=== PATIENT | male | born 1990 | race Caucasian/White ===

== ENCOUNTER 2017-10-10 14:09 | Emergency (ER) | payer SELFPAY ==
[2017-10-10] MEDS ORDERED: TETANUS & DIPHTHERIA TOX,ADULT 0.5 ML VIAL ONE (14:53)
[2017-10-10] MEDS ORDERED: DOXYCYCLINE 100 MG CAP PO ONE (14:53)
[2017-10-10] MEDS ORDERED: LIDOCAINE 1% 20 ML MDV ONE (15:28)
--- NOTE | 2017-10-10 15:29 | EDPHYS ---
Physician Documentation [facility] Name: Otto Choa Age: 27 yrs Sex: Male : 1990 Arrival Date: 10/10/2017 Time: 14:10 Bed 20 Private MD: ED Physician Stefano Hart HPI: 10/10 14:19 This 27 yrs old Male presents to ER via Wheelchair with complaints of kb Laceration To Foot. 14:19 The patient has a laceration related to: got out of boat and stepped in oyster bed kb occurred outdoors, and there are no complicating factors. The injury was accidental. The laceration(s) is(are) located on the medial aspect of right heel and medial aspect of left toes. Onset: The symptoms/episode began/occurred just prior to arrival. Associated signs and symptoms: The patient has no apparent associated signs or symptoms. The patient has not experienced similar symptoms in the past. The patient has not recently seen a physician. 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 - Social history:: Smoking status: Patient/guardian denies using tobacco. ROS: 14:20 Constitutional: Negative for fever, chills, and weight loss, Cardiovascular: Negative kb for chest pain, palpitations, and edema, Respiratory: Negative for shortness of breath, cough, wheezing, and pleuritic chest pain, Abdomen/GI: Negative for abdominal pain, nausea, vomiting, diarrhea, and constipation, MS/Extremity: Negative for injury and deformity, Neuro: Negative for headache, weakness, numbness, tingling, and seizure. 14:20 Skin: Positive for laceration(s), of the medial aspect of right heel and medial aspect of left toes. Exam: 14:25 Constitutional: This is a well developed, well nourished patient who is awake, alert, kb and in no acute distress. Head/Face: Normocephalic, atraumatic. Chest/axilla: Normal chest wall appearance and motion. Nontender with no deformity. No lesions are appreciated. Cardiovascular: Regular rate and rhythm with a normal S1 and S2. No gallops, murmurs, or rubs. Normal PMI, no JVD. No pulse deficits. Respiratory: Lungs have equal breath sounds bilaterally, clear to auscultation and percussion. No rales, rhonchi or wheezes noted. No increased work of breathing, no retractions or nasal flaring. Abdomen/GI: Soft, non-tender, with normal bowel sounds. No distension or tympany. No guarding or rebound. No evidence of tenderness throughout. MS/ Extremity: Pulses equal, no cyanosis. Neurovascular intact. Full, normal range of motion. Neuro: Awake and alert, GCS 15, oriented to person, place, time, and situation. Cranial nerves II-XII grossly intact. Motor strength 5/5 in all extremities. Sensory grossly intact. Cerebellar exam normal. Normal gait. 14:25 Skin: injury, laceration(s), the wound is approximately 4 cm(s), of the medial aspect of left toes, the second wound is approximately 1.5 cm(s), of the medial aspect of right heel, that can be described as clean, no foreign body, linear, without bleeding. Vital Signs: 14:16 BP 142 / 83; Pulse 80; Resp 19; Temp 98(TE); Pulse Ox 99% on R/A; Weight 79.38 kg; la1 Height 5 ft. 9 in. (175.26 cm); 15:00 BP 120 / 76; Pulse 66; Resp 18; Pulse Ox 99% on R/A; Pain 10/10; mh5 15:47 BP 136 / 92; Pulse 73; Resp 18; Pulse Ox 99% on R/A; Pain 9/10; mh5 14:16 Body Mass Index 25.84 (79.38 kg, 175.26 cm) la1 Laceration: 15:29 Wound Repair of 4cm ( 1.6in ) subcutaneous laceration to medial aspect of left toes. kb Irregularly shaped.. Distal neuro/vascular/tendon intact. Anesthesia: Wound infiltrated with 3 mls of 1% lidocaine. Wound prep: Extensive cleansing with betadine by me, Wound irrigation with saline by me. Skin closed with 4 4-0 Prolene using interrupted sutures and sterile technique. Dressed with Neosporin. Patient tolerated well. MDM: 14:18 Patient medically screened. kb 14:24 Data reviewed: vital signs, nurses notes. Data interpreted: Pulse oximetry: on room air kb is 99 %. Interpretation: normal. 15:28 Counseling: I had a detailed discussion with the patient and/or guardian regarding: the kb historical points, exam findings, and any diagnostic results supporting the discharge/admit diagnosis, the need for outpatient follow up, a family practitioner, to return to the emergency department if symptoms worsen or persist or if there are any questions or concerns that arise at home. 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 Exp: em 02/06/2020. Lot #: [id number]. } Route: IM; Site: right deltoid; 15:12 Follow up: Response: No adverse reaction em 14:48 Drug: Doxycycline 100 mg Route: PO; em 15:12 Follow up: Response: No adverse reaction em 15:20 Drug: Lidocaine (1 %) 1 vials {Note: administered by JOSIE Yepez.} Volume: 5 ml; Route: em Infiltration; 15:42 Follow up: Response: No adverse reaction em Disposition: 15:47 Co-signature as Attending Physician, Stefano Hart MD I agree with the assessment and jacklyn plan of care. Disposition: 10/10/17 15:29 Discharged to Home. Impression: Laceration without foreign body of foot. - Condition is Stable. - Discharge Instructions: Laceration Care, Adult, [id number]. - Prescriptions for Doxycycline Hyclate 100 mg Oral Tablet - take 1 tablet by ORAL route every 12 hours; 20 tablet. - Medication Reconciliation Form, Thank You Letter, Antibiotic Education, Prescription Opioid Use form. - Follow up: Emergency Department; When: As needed; Reason: Worsening of condition. Follow up: Private Physician; When: 2 - 3 days; Reason: Recheck today's complaints, Continuance of care, Re-evaluation by your physician. Signatures: Marleni Cavazos, [employer]-C HARLEY-Stefano Barajas MD MD cha Munoz, Edgar, ARTISTS' BOOKING REPRESENTATIVE ARTISTS' BOOKING REPRESENTATIVE Jeremie Ordonez, RN RN la1
--- NOTE | 2017-10-10 15:29 | ER ---
Nurse's Notes [facility] Name: Otto Chao Age: 27 yrs Sex: Male : 1990 Arrival Date: 10/10/2017 Time: 14:10 Bed 20 Private MD: Diagnosis: Laceration without foreign body of foot Presentation: 10/10 14:15 Presenting complaint: Patient states: lacerations to YEN from oysters. bleeding la1 controlled. Transition of care: patient was not received from another setting of care. Complicating Factors: There are no complicating factors for this patient. Onset of symptoms was October 10, 2017. Care prior to arrival: None. 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 - Social history:: Smoking status: Patient/guardian denies using tobacco. Screenin:53 Abuse screen: Denies threats or abuse. Nutritional screening: No deficits noted. em Tuberculosis screening: No symptoms or risk factors identified. Fall Risk None identified. Assessment: 14:33 General: Appears in no apparent distress. comfortable, Behavior is calm, cooperative. em Pain: Complains of pain in left foot. Neuro: Level of Consciousness is awake, alert, obeys commands, Oriented to person, place, time, situation. Cardiovascular: Capillary refill < 3 seconds Patient's skin is warm and dry. Respiratory: Airway is patent Respiratory effort is even, unlabored, Respiratory pattern is regular, symmetrical. GI: Abdomen is flat. : No signs and/or symptoms were reported regarding the genitourinary system. EENT: No signs and/or symptoms were reported regarding the EENT system. Derm: Skin is intact, Skin is pink, warm \T\ dry. Musculoskeletal: Range of motion: intact in all extremities. Injury Description: Laceration sustained to medial aspect of right heel and left foot is 2.6 to 7.5 cm long, was sustained 30-60 minutes ago. is bleeding a small amount. 15:26 Reassessment: No changes from previously documented assessment. I agree with the above la1 assessment from Cameron Hirsch. 15:30 Reassessment: Patient appears in no apparent distress at this time. Patient and/or em family updated on plan of care and expected duration. Pain level reassessed. Patient is alert, oriented x 3, equal unlabored respirations, skin warm/dry/pink. Vital Signs: 14:16 BP 142 / 83; Pulse 80; Resp 19; Temp 98(TE); Pulse Ox 99% on R/A; Weight 79.38 kg; la1 Height 5 ft. 9 in. (175.26 cm); 15:00 BP 120 / 76; Pulse 66; Resp 18; Pulse Ox 99% on R/A; Pain 10/10; mh5 15:47 BP 136 / 92; Pulse 73; Resp 18; Pulse Ox 99% on R/A; Pain 9/10; mh5 14:16 Body Mass Index 25.84 (79.38 kg, 175.26 cm) la1 ED Course: 14:10 Patient arrived in ED. as 14:16 Triage completed. la1 14:17 Arm band placed on left wrist. la1 14:18 Marleni Cavazos FNP-C is PHCP. kb 14:18 Stefano Hart MD is Attending Physician. kb 14:30 Cameron Hirsch LVN is Primary Nurse. em 14:40 Wound care: to laceration located on medial aspect of right heel and medial aspect of em left toes was cleaned with Betadine, soaked in Betadine solution. 14:40 Patient did not have IV access during this emergency room visit. em 14:53 Patient has correct armband on for positive identification. Bed in low position. Call em light in reach. Side rails up X 1. Adult w/ patient. 14:53 No provider procedures requiring assistance completed. 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 Exp: em 02/06/2020. Lot #: [id number]. } Route: IM; Site: right deltoid; 15:12 Follow up: Response: No adverse reaction em 14:48 Drug: Doxycycline 100 mg Route: PO; em 15:12 Follow up: Response: No adverse reaction em 15:20 Drug: Lidocaine (1 %) 1 vials {Note: administered by NP. Marleni} Volume: 5 ml; Route: em Infiltration; 15:42 Follow up: Response: No adverse reaction em Outcome: 15:29 Discharge ordered by MD. dow 15:42 Discharged to home ambulatory. em 15:42 Condition: good 15:42 Discharge instructions given to patient, Instructed on discharge instructions, follow up and referral plans. medication usage, Demonstrated understanding of instructions, follow-up care, medications, Prescriptions given X 1. 15:43 Patient left the ED. em Signatures: Marleni Cavazos, LACE CUTTER-C LACE CUTTER-Cameron Carrion, INDUSTRIAL HYGIENE TECHNICIAN INDUSTRIAL HYGIENE TECHNICIAN Sobeida Balderrama Lee, RN RN [email or web address] Padmini Owens [facility]
[2017-10-10 15:47] VITALS: BP 142/83; TEMP 98; O2SAT 99
== END 2017-10-10 15:43 | disposition home or self-care (01) ==
LOC: ER 14:09
PROC: 0JQR0ZZ Repair Left Foot Subcutaneous Tissue and Fascia, Open Approach (ICD-10-PCS; principal; 2017-10-10)
DX: S91.312A Laceration without foreign body, left foot, initial encounter (principal); Y28.8XXA Contact with other sharp object, undetermined intent, initial encounter; Y93.89 Activity, other specified; Y92.89 Other specified places as the place of occurrence of the external cause; Z23 Encounter for immunization; Z88.0 Allergy status to penicillin; Z88.6 Allergy status to analgesic agent
CPT/HCPCS: 90714; 99283

== ENCOUNTER 2017-10-13 20:36 | Emergency (ER) | payer SELFPAY ==
[2017-10-13] MEDS ORDERED: ONDANSETRON 4 MG (ODT) TAB ONE (21:19)
--- NOTE | 2017-10-13 22:07 | EDPHYS ---
Physician Documentation [facility] Name: Otto Chao Age: 27 yrs Sex: Male : 1990 Arrival Date: 10/13/2017 Time: 20:37 Bed 6 Private MD: ED Physician Lincoln Chan HPI: 10/14 00:26 This 27 yrs old Male presents to ER via Ambulatory with complaints of Doesn't tw4 Feel Right. 00:26 The patient presents to the emergency department with nausea, vomiting. Onset: The tw4 symptoms/episode began/occurred today. Possible causes: antibiotics, Doxycycline. The symptoms are aggravated by nothing. The symptoms are alleviated by nothing. Associated signs and symptoms: The patient has no apparent associated signs or symptoms. Severity of symptoms: At their worst the symptoms were moderate in the emergency department the symptoms are unchanged. Historical: - Allergies: 10/13 20:49 Ibuprofen; aj 20:49 PENICILLINS; aj - Home Meds: 20:49 None [Active]; aj - PMHx: 20:49 WPW; aj - PSHx: 20:49 ablasion; aj - Immunization history:: Adult Immunizations up to date. - Social history:: Smoking status: Patient uses tobacco products, smokes one pack cigarettes per day. ROS: 10/14 00:26 Constitutional: Negative for fever, chills, and weight loss, Eyes: Negative for injury, tw4 pain, redness, and discharge, Cardiovascular: Negative for chest pain, palpitations, and edema, Respiratory: Negative for shortness of breath, cough, wheezing, and pleuritic chest pain. MS/Extremity: Negative for injury and deformity, Skin: Negative for injury, rash, and discoloration, Neuro: Negative for headache, weakness, numbness, tingling, and seizure. Abdomen/GI: Positive for nausea, Negative for abdominal pain, nausea and vomiting, nausea, vomiting, and diarrhea, constipation, abdominal cramps, abdominal distension, anorexia, dysphagia, hematemesis, black/tarry stool, rectal pain. Exam: 00:26 Constitutional: This is a well developed, well nourished patient who is awake, alert, tw4 and in no acute distress. Head/Face: Normocephalic, atraumatic. Chest/axilla: Normal chest wall appearance and motion. Nontender with no deformity. No lesions are appreciated. Cardiovascular: Regular rate and rhythm with a normal S1 and S2. No gallops, murmurs, or rubs. Normal PMI, no JVD. No pulse deficits. Respiratory: Lungs have equal breath sounds bilaterally, clear to auscultation and percussion. No rales, rhonchi or wheezes noted. No increased work of breathing, no retractions or nasal flaring. Abdomen/GI: Soft, non-tender, with normal bowel sounds. No distension or tympany. No guarding or rebound. No evidence of tenderness throughout. 00:26 Musculoskeletal/extremity: Extremities: noted in the ball of left foot: laceration, swelling, tenderness. 00:32 Musculoskeletal/extremity: Extremities: tw4 Vital Signs: 10/13 20:49 BP 143 / 84; Pulse 91; Resp 18; Temp 99.3; Pulse Ox 99% on R/A; Weight 79.38 kg; Height aj 5 ft. 9 in. (175.26 cm); Pain 0/10; 21:05 BP 142 / 94; Pulse 102; Resp 18; Pulse Ox 99% ; cc 21:17 BP 132 / 78; Pulse 88; Resp 18; Pulse Ox 100% on R/A; ea 22:20 BP 115 / 73; Pulse 61; Resp 16; Temp 98.9; Pulse Ox 99% on R/A; Pain 0/10; ak1 20:49 Body Mass Index 25.84 (79.38 kg, 175.26 cm) aj MDM: 21:01 Patient medically screened. tw4 10/14 00:32 Data reviewed: vital signs, nurses notes. Special discussion: I discussed with the tw4 patient/guardian in detail that at this point there is no indication for admission to the hospital. It is understood, however, that if the symptoms persist or worsen the patient needs to return immediately for re-evaluation. 00:32 Counseling: I had a detailed discussion with the patient and/or guardian regarding: the tw4 historical points, exam findings, and any diagnostic results supporting the discharge/admit diagnosis. Administered Medications: 10/13 21:21 Drug: Zofran 4 mg Route: PO; ea 22:16 Follow up: Response: No adverse reaction ak1 Disposition: 10/13/17 22:06 Discharged to Home. Impression: Nausea and vomiting. - Condition is Stable. - Discharge Instructions: Antibiotic Resistance, Antibiotic Medication, Antibiotic Use, [id number], Nausea, Adult, [id number]. - Prescriptions for Cipro 500 mg Oral Tablet - take 1 tablet by ORAL route every 12 hours for 10 days; 20 tablet. Zofran 4 mg Oral Tablet - take 1 tablet by ORAL route every 12 hours As needed; 20 tablet. - Medication Reconciliation Form, Thank You Letter, Antibiotic Education, Prescription Opioid Use form. - Follow up: Private Physician; When: As needed; Reason: Recheck today's complaints, Continuance of care, Re-evaluation by your physician. - Problem is new. - Symptoms have improved. Signatures: Kimberly Hays, RN RN Ekta Douglas RN RN ak1 Skylar May RN Lincoln Portillo ea, MD MD tw4
--- NOTE | 2017-10-13 22:07 | ER ---
Nurse's Notes [facility] Name: Otto Chao Age: 27 yrs Sex: Male : 1990 Arrival Date: 10/13/2017 Time: 20:37 Bed 6 Private MD: Diagnosis: Nausea and vomiting Presentation: 10/13 20:46 Presenting complaint: Patient states: Reports feeling "clammy", diarrhea, nausea that aj started today. Patient had laceration repair on Friday after stepping on oyster shells. Redness and swelling noted to left foot. Transition of care: patient was not received from another setting of care. Onset of symptoms was October 13, 2017. Care prior to arrival: None. 20:46 Method Of Arrival: Ambulatory aj 20:46 Acuity: KELLY 3 aj Triage Assessment: 20:49 General: Appears in no apparent distress. comfortable, Behavior is calm, cooperative, aj appropriate for age. Pain: Denies pain. Neuro: Level of Consciousness is awake, alert, obeys commands, Oriented to person, place, time, situation. Respiratory: Airway is patent Respiratory effort is even, unlabored, Respiratory pattern is regular, symmetrical. Derm: Skin is intact, is healthy with good turgor, Skin is pink, warm \\T\\ dry. normal. Musculoskeletal: Swelling present in left foot. Historical: - Allergies: 20:49 Ibuprofen; aj 20:49 PENICILLINS; aj - Home Meds: 20:49 None [Active]; aj - PMHx: 20:49 WPW; aj - PSHx: 20:49 ablasion; aj - Immunization history:: Adult Immunizations up to date. - Social history:: Smoking status: Patient uses tobacco products, smokes one pack cigarettes per day. Screenin:10 Abuse screen: Denies threats or abuse. Nutritional screening: No deficits noted. ea Tuberculosis screening: No symptoms or risk factors identified. Fall Risk None identified. Assessment: 21:08 General: Appears in no apparent distress. Behavior is calm, cooperative, Reports he was ea prescribed antibiotics that have made him feel sick.. Neuro: No deficits noted. Level of Consciousness is awake, alert, obeys commands, Oriented to person, place, time, situation. Cardiovascular: Patient's skin is warm and dry. Respiratory: Airway is patent Respiratory effort is even, unlabored, Respiratory pattern is regular, symmetrical. GI: No signs and/or symptoms were reported involving the gastrointestinal system. : No signs and/or symptoms were reported regarding the genitourinary system. Derm: Skin is pink, warm \\T\\ dry. Vital Signs: 20:49 BP 143 / 84; Pulse 91; Resp 18; Temp 99.3; Pulse Ox 99% on R/A; Weight 79.38 kg; Height aj 5 ft. 9 in. (175.26 cm); Pain 0/10; 21:05 BP 142 / 94; Pulse 102; Resp 18; Pulse Ox 99% ; cc 21:17 BP 132 / 78; Pulse 88; Resp 18; Pulse Ox 100% on R/A; ea 22:20 BP 115 / 73; Pulse 61; Resp 16; Temp 98.9; Pulse Ox 99% on R/A; Pain 0/10; ak1 20:49 Body Mass Index 25.84 (79.38 kg, 175.26 cm) ED Course: 20:37 Patient arrived in ED. ds1 20:48 Triage completed. aj 20:49 Arm band placed on right wrist. Patient placed in waiting room, Patient notified of wait time. 21:01 Lincoln Chan MD is Attending Physician. tw4 21:05 Skylar May RN is Primary Nurse. ea 21:10 Patient has correct armband on for positive identification. Placed in gown. Bed in low ea position. Call light in reach. 22:17 No provider procedures requiring assistance completed. Patient did not have IV access ak1 during this emergency room visit. Administered Medications: 21:21 Drug: Zofran 4 mg Route: PO; ea 22:16 Follow up: Response: No adverse reaction ak1 Outcome: 22:06 Discharge ordered by . tw4 22:17 Discharged to home with crutches, with family. ak1 22:17 Condition: good 22:17 Discharge instructions given to patient, family, Instructed on discharge instructions, follow up and referral plans. no drinking with medication, no driving heavy equipment, medication usage, wound care, wound cleaning. pt verbalized understand of wound cleaning and medication usage. Demonstrated understanding of instructions, follow-up care, medications, Prescriptions given X 2. 22:19 Patient left the ED. ak1 Signatures: Kimberly Hays RN RN Janette Carrillo ds1 Tari Edward Amber, RN RN ak1 Skylar May RN RN Lincoln Thrasher MD MD tw4 Corrections: (The following items were deleted from the chart) 21:16 21:08 General: Appears in no apparent distress. Behavior is calm, cooperative, horace vu
[2017-10-13 22:30] VITALS: TEMP 99.3
[2017-10-13 22:32] VITALS: BP 132/78; O2SAT 100
== END 2017-10-13 22:19 | disposition home or self-care (01) ==
LOC: ER 20:36
DX: R11.2 Nausea with vomiting, unspecified (principal); F17.210 Nicotine dependence, cigarettes, uncomplicated; Z88.0 Allergy status to penicillin; Z88.6 Allergy status to analgesic agent
CPT/HCPCS: 99283